=== PATIENT | female | born 1980 | race Two or more races ===

== ENCOUNTER 2017-07-08 06:30 | Day surgery (SDC) | payer BC ==
--- NOTE | 2017-07-05 17:14 | GHP ---
[f rep st] HISTORY AND PHYSICAL DATE OF ADMISSION: 07/08/2017 ADMITTING DIAGNOSIS: Missed at 7 weeks. HISTORY OF PRESENT ILLNESS: Patient is a 37-year-old 3, para 1-1-0-1 at 8 weeks and 4 days by last menstrual period 04/30/2017, who presented for her new OB intake a week ago and had an ultrasound showing an IUP with no heart rate, measuring 7 weeks and 1 day. A yolk sac was seen and enlarged at 6 mm, and a subchorionic hemorrhage was noted near gestational sac. The patient denies any spotting or cramping. We discussed ultrasound results consistent with a missed AB. Condolences were given. We discussed treatment options; conservative to see if she passes products on her own versus medical treatment with Cytotec versus surgical management with a suction D and C. Patient is tearful and wants to observe for now. Miscarriage precautions were given. Patient called my office today, stating that there have been no signs of bleeding or cramping, and she is ready to move forward with the suction D and C. The surgery is scheduled for July 08. PAST OB HISTORY: In 2013, she delivered a viable female infant at 41 weeks, weighing 7 pounds 12 ounces via an uncomplicated vaginal delivery. In 2015, she had a still at 35 weeks. Male infant was born with a hole in his heart and had Down syndrome. [employer] HISTORY: Age of menarche was 9. Cycles are every 32-35 days for 3 days. LMP 04/30/2017. Positive test middle of May 2017. Patient denies a history of abnormal Pap smears. Denies any exposure to sexually transmitted diseases. PAST MEDICAL HISTORY: depression and a history of migraine headaches. PAST SURGICAL HISTORY: Unremarkable. MEDICATIONS: vitamins, Claritin. ALLERGIES: No known drug allergies. SOCIAL HISTORY: Patient is . She is an regional transportation manager. She lives with her and their daughter. Denies alcohol, tobacco, or illicit drug use. REVIEW OF SYSTEMS: 10-point review of systems is negative. Pertinent positives noted in HPI. LABS: Patient is O positive. PHYSICAL EXAM: VITAL SIGNS: On admission, vital signs are stable. Patient is afebrile. GENERAL: Well-nourished well-developed female. Alert and oriented x3. No apparent distress. CARDIOVASCULAR: Regular rate and rhythm. LUNGS: Clear to auscultation bilaterally. ABDOMEN: Soft, nontender, nondistended. PELVIC: Exam deferred. EXTREMITIES: Normal to inspection without calf tenderness or edema. ASSESSMENT/PLAN: Patient is a 37-year-old 3, para 1-1-0-1, with a missed at 7 weeks. 1. The suction dilation and curettage is scheduled for 07/08. 2. Surgical consents to be done at bedside. 3. Antibiotics a r collections rep to OR. 4. Sequential compression devices for deep venous thrombosis prophylaxis. /[id number]/MODL MTDD
[2017-07-08] MEDS ORDERED: DOXYCYCLINE HYCLATE 100 MG CAP/TAB PO ONE ×3 (07:15→10:15)
[2017-07-08] MEDS ORDERED: LR 1,000 ML IV ONE (07:30)
[2017-07-08] MEDS ORDERED: MIDAZOLAM 2 MG/2 ML VIAL ONE (08:50)
--- NOTE | 2017-07-08 08:54 | PDANEPAE ---
ANE History of Present Illness Missed Ab. ANE Past Medical History Past Medical History: No surgeries. - Cardiovascular History Hx Hypertension: No Hx Arrhythmias: No Hx Chest Pain: No Hx Coronary Artery / Peripheral Vascular Disease: No Hx CHF / Valvular Disease: No Hx Palpitations: No - Pulmonary History Hx COPD: No Hx Asthma/Reactive Airway Disease: No Hx Recent Upper Respiratory Infection: No Hx Oxygen in Use at Home: No Hx Sleep Apnea: No ANE Review of Systems Review of systems is: negative Review of Systems: ANE Patient History - Allergies Allergies/Adverse Reactions: No Known Drug Allergies Allergy (Verified 07/08/17 07:05) - Anes Hx Anes Hx: no prior problems - Smoking Hx Smoking Status: Never smoked Marijuana use: No - Alcohol Use Alcohol Use: None - Family Anes Hx Family Anes Hx: neg - N/A ANE Labs/Vital Signs - Vital Signs Height: 154.94 cm Weight: 79.832 kg ANE Physical Exam - Airway Neck exam: FROM Mouth exam: normal dental/mouth exam - Pulmonary Pulmonary: no respiratory distress - Cardiovascular Cardiovascular: regular rate and rhythym - ASA Status ASA Status: I ANE Anesthesia Plan Anesthesia Plan: GA with mask
[2017-07-08] MEDS ORDERED: PROPOFOL/EMULSION 500 MG/50 ML BOTTLE IV ONE (08:57)
[2017-07-08] MEDS ORDERED: fentaNYL 100 MCG/2 ML INJ ONE (08:58)
[2017-07-08] MEDS ORDERED: KETOROLAC 30 MG/1 ML SDV ONE (09:55)
[2017-07-08] MEDS ORDERED: DEXAMETHASONE 4 MG/ML VIAL ONE ×2 (09:56)
[2017-07-08] MEDS ORDERED: LIDOCAINE 2% 5 ML SDV ONE (09:56)
[2017-07-08] MEDS ORDERED: ONDANSETRON 4 MG/2 ML VIAL ONE (09:56)
[2017-07-08] MEDS ORDERED: MEPERIDINE 25 MG/ML SYR IVP PRN (10:07)
[2017-07-08] MEDS ORDERED: NALOXONE HCL 0.4 MG/ML INJ IVP PRN (10:07)
[2017-07-08] MEDS ORDERED: ONDANSETRON 4 MG/2 ML VIAL IVP PRN (10:07)
[2017-07-08] MEDS ORDERED: ALBUTEROL 3 ML DEYVIAL IH PRN (10:07)
[2017-07-08] MEDS ORDERED: HYDROCODONE/APAP 5/325 TAB PO PRN (10:07)
[2017-07-08] MEDS ORDERED: METOCLOPRAMIDE 10 MG/2 ML VIAL IVP PRN (10:07)
[2017-07-08] MEDS ORDERED: fentaNYL 100 MCG/2 ML INJ IVP PRN (10:07)
--- NOTE | 2017-07-08 10:07 | POSTANESTH ---
Post Anesthetic Evaluation Cardiovascular Status: Normal, Stable, Similar to Pre-Op Cond Respiratory Status: Normal, Stable, Similar to Pre-op Cond. Level of Consciousness/Mental Status: Can Participate in Eval, Alert and Oriented Pain Control: Adequate, Prn Tx Ordered Nausea/Vomiting Control: Adequate, Prn Tx Ordered Complications Possibly Related to Anesthesia: None Noted
--- NOTE | 2017-07-08 12:25 | GOP ---
[f rep st] OPERATIVE REPORT DATE OF OPERATION: 07/08/2017 SURGEON: Gabriela Kimble DO MALE IMPERSONATOR: None. ANESTHESIA: LMA. ANESTHESIOLOGIST: Arsenio Juares MD. PREOPERATIVE DIAGNOSIS: Missed at 7 weeks. POSTOPERATIVE DIAGNOSIS: Missed at 7 weeks. PROCEDURE PERFORMED: Suction D and C. FINDINGS: Uterus sounded to 8 cm. The cervix was closed. No active blood bleeding noted. No blood clots or any blood in the vault. The cervix was dilated up to a #7.5 Hegar and a curved 7 mm suction curette was used. A moderate amount of POC was noted. Minimal bleeding noted at the end of the procedure. All specimens sent to Pathology. The patient is O positive. SPECIMENS: Products of conception. ESTIMATED BLOOD LOSS: 50 cc. INDICATIONS: Patient is a 37-year-old 3, para 1-1-0-1 at 8 weeks and 4 days by last menstrual period who presented for a new OB intake a week ago. She had an ultrasound showing an IUP with no heart rate measuring 7 weeks and 1 day. A yolk sac was seen, enlarged at 6 mm, and a subchorionic hemorrhage was noted near gestational sac. The patient denied any spotting or cramping. We discussed ultrasound results consistent with a missed AB, condolences were given. We discussed treatment options, conservative management versus medical treatment with Cytotec versus surgical management with suction D and C. The patient was tearful and wanted to observe at that point. Miscarriage precautions were given. The patient then called my office yesterday stating there had been no signs of bleeding or cramping and was ready to move forward with a suction D and C. Risks, benefits and alternatives of the procedure were reviewed, including but not limited to bleeding, infection, risk of uterine perforation. The patient understood all risks of the procedure and wanted to proceed with surgery at this time. The patient was consented. DESCRIPTION OF PROCEDURE: The patient was taken to the operating room where anesthesia was administered. She was positioned in dorsal lithotomy position, prepped and draped in normal sterile fashion. An open ended speculum was then placed in the vagina. The anterior lip of the cervix was grasped with the Allis clamp. Uterus was gently sounded to 8 cm. No cervical dilation was noted, so the cervix was dilated up to a #7.5 Hegar. A size 7 curved suction curette was then used, connected to suction, was placed in the cervix up to the uterus and a suction curettage was performed. Three passes were made with the suction curettage. Next, we turned our attention to a sharp curettage. This was performed obtaining a small amount of tissue. This was performed in all 4 quadrants of the uterus until a gritty texture was noted. We then performed a bedside ultrasound and it did appear that the all products were removed. We then passed the suction curettage one last time to remove any retained products of . After the procedure, all instruments were removed. Hemostasis was noted. The patient did receive 100 mg of doxycycline prior to the procedure and will receive 200 mg in the PACU. Sponge and instrument count correct x2. Patient tolerated the procedure well. No complications. The patient was taken from the operating room in stable condition into PACU. INTRAVENOUS FLUIDS: 1700 cc of LR. URINE OUTPUT: Patient emptied her bladder prior to the procedure. /[id number]/MODL MTDD
== END 2017-07-08 11:10 | disposition home or self-care (01) ==
LOC: FOBOP 06:30
PROVIDERS: ATTEND Obstetrics & Gynecology
PROC: 10D17ZZ Extraction of Products of Conception, Retained, Via Natural or Artificial Opening (ICD-10-PCS; principal; 2017-07-08)
DX: O02.1 Missed abortion (principal)
CPT/HCPCS: J1100; J1885; J2250; J2405; J2704; J3010

== ENCOUNTER → 2018-01-04 | Outpatient (CLI) | payer OTHER | LOC: FIMAGING 08:02 | PROVIDERS: ATTEND Obstetrics & Gynecology | DX: O09.522 Supervision of elderly multigravida, second trimester (principal); O26.02 Excessive weight gain in pregnancy, second trimester; O09.292 Supervision of pregnancy with other poor reproductive or obstetric history, second trimester; Z3A.20 20 weeks gestation of pregnancy ==